=== PATIENT | male | born 1970 | race African-American/Black ===

== ENCOUNTER 2018-11-14 20:56 | Inpatient (IN) | payer OTHER ==
[~2018-11-14] VITALS: Ht 180.3 cm; Wt 214.5 kg
[~2018-11-14 20:56] MED LIST: CIPROFLOXACIN500 M1 PO; COZAAR 25 MG TA25 M1 PO; FLAGYL500 MG PO; HYDRALAZINE 2525 MG PO; IRBESARTAN-HCT1 EAC1 PO; PREDNISONE 10 M10 MG PO; PROAIR HFA8.5 GM INH; PROMETHAZINE-C120 ML PO; PROVENTIL HFA6.7 G1 INH; PYRIDIUM200 MG PO; ZPAK PO
[2018-11-14 20:59] VITALS: BP 205/109
[2018-11-14 21:35] LABS: HEMOGLOBIN 12.6 gm/dL (14.0-18.0)
[2018-11-14 21:37] LABS: HEMATOCRIT 39.6 % (42.0-52.0); MCH 25.6 pg (26.0-34.0); MCHC 31.9 g/dL (28.0-37.0); MCV 80.1 fL (80.0-100.0); RBC 4.94 mil/uL (4.50-6.00); RDW 16.3 % (10.5-14.5)
[2018-11-14 21:46] LABS: ANION GAP 12 mmol/L (7-16); BUN 18 mg/dL (7-18); CALCIUM 8.9 mg/dL (8.5-10.1); CHLORIDE 103 mmol/L (98-107); CO2 21 mmol/L (21-32); CREATININE 1.1 mg/dL (0.7-1.3); GLUCOSE 108 mg/dL (74-106); SODIUM 136 mmol/L (136-145)
[2018-11-14 21:47] LABS: POTASSIUM 5.4 mmol/L (3.5-5.1)
[2018-11-14 21:54] LABS: ALBUMIN 3.5 g/dL (3.4-5.0); LIPASE 131 U/L (73-393); SGOT 43 U/L (15-37); SGPT 28 U/L (30-65); TOTAL BILIRUBIN 0.8 mg/dL (<0.1-1.0); TROPONIN-I <0.06 ng/mL (<0.06)
[2018-11-14] MEDS ORDERED: CARVEDILOL6.25 M1 PO (23:24)
[2018-11-14] MEDS ORDERED: LASIX 20 MG TAB20 MG PO (23:25)
[2018-11-15 00:03] LABS: URINE BILIRUBIN NEGATIVE (Negative); URINE BLOOD NEGATIVE (Negative); URINE CLARITY CLEAR; URINE COLOR YELLOW; URINE GLUCOSE-RANDOM* NEGATIVE (Negative); URINE KETONES NEGATIVE (Negative); URINE LEUKOCYTES-REFLEX NEGATIVE (Negative); URINE NITRITE-REFLEX NEGATIVE (Negative); URINE PROTEIN (DIPSTICK) NEGATIVE (Negative); URINE UROBILINOGEN 0.2 E.U./dl (0.2-1.0)
[2018-11-15 01:19] VITALS: BP 193/96
[2018-11-15 01:55] VITALS: BP 193/96
[2018-11-15 02:16] VITALS: BP 180/92
--- NOTE | 2018-11-15 03:29 | NUR ---
ADMITTED FROM ER UNDER 'S CARE. ADMIT WITH ABD PAIN AND DIVERTICULITIS. PT WAS SEEN BY APOLLO BROUSSARD MANAGER CONVENTION FOR AT BEDSIDE. HOME MEDS RESUMED AND PUT ON NPO FOR NOW. NO S/S ACUTE DISTRESS NOTED OR REPORTED AT THIS TIME. WILL CONT TO MONITOR FOR ANY CHANGES IN CONDITION.
[2018-11-15 06:22] LABS: CALCIUM 8.7 mg/dL (8.5-10.1); CREATININE 1.3 mg/dL (0.7-1.3); MAGNESIUM 2.1 mg/dL (1.8-2.4)
[2018-11-15 06:23] LABS: POTASSIUM 3.8 mmol/L (3.5-5.1)
--- NOTE | 2018-11-15 07:37 | EKG ---
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[employer] Architect: SHANNEN : 1970 Requested By: Noelle Henriquez Order Number: [id number] MD: Jose Alberto Gaines Measurements Intervals [place] Rate: 97 P: 47 MO: 169 QRS: -30 QRSD: 111 T: 115 QT: 379 QTc: 482 Interpretive Statements Sinus rhythm Probable left atrial enlargement Left axis deviation Poor R wave progression Abnormal T, consider ischemia, lateral leads No previous ECG available for comparison Electronically Signed On 11-15-2018 7:37:18 CDT by Jose Alberto Gaines [email or web address] ��������������������������������������������� <ELECTRONICALLY SIGNED> ���������������������������������������� By: Jose Alberto Gaines MD, [facility] ��������������������������������������������� 11/15/18736 16 16 Jose Alberto Gaines MD, [facility] /EPI
[2018-11-15 07:50] VITALS: BP 160/93
--- NOTE | 2018-11-15 09:37 | NUR ---
salazar visited with pt at bedside, he preferrs going by mo, he was on phone call with his mother, offered to come back, pt stated " no i need to talk with you. intro to cm, transition of care, safe net packet. bedside nurse in room giving meds as ordered for pain " my stomach hurt, i was supposed to start new job today but no i am here. been off work for year laid off work. independent with needs as home , live with my mother. use [facility] for [facility]. just needs rx and will as family to help with medication. use cpap with naps and bedside. take btx at home. need to talk with someone about disability. my mom wants to talk with you"/mo. visited with his mom " he needs some help, he cant work and gets sick then looses his job. he needs disability and wt loss surgery"/reji. referral sent to [facility] emergency department, call pt at [phone] or visit in hospital before dc home. safety net packet provided. will cont following as needed for dc needs. dcp home with mother.
[2018-11-15 15:28] VITALS: BP 153/76
--- NOTE | 2018-11-15 17:02 | NUR ---
PATIENT VS STABLE THROUGHOUT SHIFT. PT C/O PAIN THROUGHOUT SHIFT, ADRESSED WITH PAIN MEDICATION. PT TO BRING BIPAP IN TONIGHT. PT REQUESTED HOME RESPIRATORY MEDICATON, PHYSICIAN ORDERED. PT TOLERATING CLEAR LIQUID DIET. FAMILY AT BEDSIDE.
[2018-11-15 19:20] VITALS: BP 135/72
[2018-11-16 03:18] VITALS: BP 146/91
--- NOTE | 2018-11-16 04:23 | NUR ---
ASSUMED CARE AROUND 1899. AXOX4. PAIN TX PER MD ORDER. IVF AND IV ATB FOR DIVERTICULITIS. NO S/S ACUTE DISTRESS NOTED OR REPORTED AT THIS TIME. WILL CONT TO MONITOR FOR ANY CHAGNES IN CONDITION.
[2018-11-16 05:35] LABS: HEMATOCRIT 36.7 % (42.0-52.0); HEMOGLOBIN 11.9 gm/dL (14.0-18.0); MCH 26.3 pg (26.0-34.0); MCHC 32.4 g/dL (28.0-37.0); RBC 4.54 mil/uL (4.50-6.00); RDW 16.3 % (10.5-14.5); WBC 10.4 thou/uL (4.0-11.0)
[2018-11-16 05:47] LABS: CALCIUM 8.5 mg/dL (8.5-10.1); CREATININE 1.3 mg/dL (0.7-1.3); POTASSIUM 3.6 mmol/L (3.5-5.1)
[2018-11-16 07:46] VITALS: BP 127/75
[2018-11-16 12:16] VITALS: BP 144/82
--- NOTE | 2018-11-16 14:24 | NUR ---
CARE TEAM INDICATED PT IS PROGRESSING TOWARD GOAL OF DISCHARGING HOME. CARE TEAM INDICATED POSSIBLE DC TOMORROW OR THURSDAY. CM TO FOLLOW INDICATED WITH DC PLANNING.
--- NOTE | 2018-11-16 15:31 | NUR ---
ASSUMED CARE 0700. ALERT X4 FROM HOME. VSS, PAIN MANAGED WITH MEDICATIONS. BM THIS MORNING AND REQUEST FOR DIET CHANGE. NOTIFIED DR BOSS WITH SOFT DIET ORDERED AND ENCOURAGE FLUIDS FOR URINATION PAIN. UP AB ARSH. CALLS APPROPRIATELY. CALL LIGHT IN REACH.
[2018-11-16 19:52] VITALS: BP 144/93
[2018-11-17 03:00] VITALS: BP 157/97
--- NOTE | 2018-11-17 05:08 | NUR ---
Assumed care at 1845. Pt resting in bed. VSS. Had BM today. Denies any abdominal pain or N/V. He has been using the bedside commode. IV discontinued. Expected discharge today. Call light within reach. No identified needs at the moment. Will continue to monitor.
[2018-11-17 06:05] LABS: ABSOLUTE NEUTROPHILS 5.1 thou/uL (1.4-8.2); BASOPHILS 0.2 % (0.0-2.0); EOSINOPHILS 2.1 % (0.0-3.0); HEMATOCRIT 34.2 % (42.0-52.0); HEMOGLOBIN 11.2 gm/dL (14.0-18.0); LYMPHOCYTES 18.9 % (24.0-44.0); MCH 26.2 pg (26.0-34.0); MCHC 32.7 g/dL (28.0-37.0); MCV 80.2 fL (80.0-100.0); MONOCYTES 10.3 % (1.0-8.0); PLATELET COUNT 209 thou/uL (150-400); POLYS 68.5 % (36.0-66.0); RBC 4.27 mil/uL (4.50-6.00); RDW 16.4 % (10.5-14.5); WBC 7.4 thou/uL (4.0-11.0)
[2018-11-17 06:25] LABS: CALCIUM 8.6 mg/dL (8.5-10.1); CREATININE 1.3 mg/dL (0.7-1.3); POTASSIUM 3.6 mmol/L (3.5-5.1)
[2018-11-17 08:06] VITALS: BP 147/96
[2018-11-17] MEDS ORDERED: CIPRO500 MG PO (09:07)
[2018-11-17] MEDS ORDERED: COZAAR 25 MG TA25 M1 PO (09:07)
[2018-11-17] MEDS ORDERED: HYDRALAZINE 2525 MG PO (09:07)
[2018-11-17] MEDS ORDERED: CARVEDILOL6.25 M1 PO (09:07)
[2018-11-17] MEDS ORDERED: FLAGYL500 M1 PO (09:07)
[2018-11-17 14:44] VITALS: BP 143/86
--- NOTE | 2018-11-17 15:26 | NUR ---
CARE TEAM INDICATED THAT PT IS MEDICALLY STABLE TO DC HOME THIS DAY. IT IS ANTICPATED THAT PT WILL LIKELY DISHARGE HOME WITH NO NEEDS. NO OTHER CM INTERVENTION INDICATED AT THIS TIME. CASE CLOSED.
[2018-11-17 16:18] VITALS: BP 143/86
[2018-11-17 16:31] VITALS: BP 143/86
--- NOTE | 2018-11-17 16:35 | NUR ---
TOWARDS POC PT A/O X4, VSS, AFEBRILE, PAIN MANAGED BY MEDS. PT IS FOR DC. IV DC'D. DC PACKET AND MED SCRIPTS PROVIDED. PT IS WAITING FOR A RIDE THAT WILL ARRIVE AT AROUND 1900.
== END 2018-11-17 21:01 | disposition home or self-care (01) | DRG 392 ==
LOC: ER 20:56 → EROBS 11-15 01:03 → 4W 11-15 01:03
PROVIDERS: Hospitalist; Nurse Practitioner Acute Care; Student in an Organized Health Care Education/Training Program; ADMIT Internal Medicine
DX: K57.32 Diverticulitis of large intestine without perforation or abscess without bleeding (principal); Z68.44 Body mass index [BMI] 60.0-69.9, adult; I11.0 Hypertensive heart disease with heart failure; I50.9 Heart failure, unspecified; J45.909 Unspecified asthma, uncomplicated; E66.01 Morbid (severe) obesity due to excess calories; G47.33 Obstructive sleep apnea (adult) (pediatric); Z88.8 Allergy status to other drugs, medicaments and biological substances; Z91.013 Allergy to seafood; Z87.891 Personal history of nicotine dependence; Z79.899 Other long term (current) drug therapy
CPT/HCPCS: 10040

== ENCOUNTER 2018-12-07 10:04 | Inpatient (IN) | payer OTHER ==
[~2018-12-07] VITALS: Ht 180.3 cm; Wt 218.6 kg
[~2018-12-07 10:04] MED LIST changes: +CARVEDILOL6.25 M1 PO; +CIPRO500 MG PO; +FLAGYL500 M1 PO; +LASIX 20 MG TAB20 MG PO
[2018-12-07 10:19] VITALS: BP 188/110
[2018-12-07] MEDS ORDERED: COZAAR 25 MG TA25 M1 PO (10:29)
[2018-12-07] MEDS ORDERED: LASIX 40 MG TAB40 M2 PO ×2 (10:29→20:41)
[2018-12-07 10:36] LABS: ABSOLUTE NEUTROPHILS 3.1 thou/uL (1.4-8.2); EOSINOPHILS 3.6 % (0.0-3.0); HEMATOCRIT 39.8 % (42.0-52.0); HEMOGLOBIN 13.1 gm/dL (14.0-18.0); LYMPHOCYTES 29.8 % (24.0-44.0); MCH 25.9 pg (26.0-34.0); MCHC 32.8 g/dL (28.0-37.0); MCV 78.9 fL (80.0-100.0); MONOCYTES 6.9 % (1.0-8.0); PLATELET COUNT 243 thou/uL (150-400); POLYS 58.7 % (36.0-66.0); RBC 5.04 mil/uL (4.50-6.00); RDW 16.7 % (10.5-14.5); WBC 5.3 thou/uL (4.0-11.0)
[2018-12-07 10:53] LABS: CALCIUM 9.4 mg/dL (8.5-10.1); CREATININE 1.1 mg/dL (0.7-1.3); POTASSIUM 3.8 mmol/L (3.5-5.1)
[2018-12-07 11:01] LABS: ALBUMIN 3.7 g/dL (3.4-5.0); TOTAL BILIRUBIN 0.9 mg/dL (<0.1-1.0); TOTAL PROTEIN 8.4 g/dL (6.4-8.2); TROPONIN-I 0.09 ng/mL (<0.06)
[2018-12-07 14:24] VITALS: BP 145/85
[2018-12-07 15:25] VITALS: BP 155/103; BP 188/103
--- NOTE | 2018-12-07 17:16 | EKG ---
[address] [address] ELECTROCARDIOGRAM REPORT Name: PIERO COLÓNLESLIE Uriarte Room #: 213- ADM IN M.R.#: [id number] ������������������ Admission: 12/07/18 ������������������ Attend Phys: Elia Brown MD Discharge: ������������������ Date of : 72 Report #: [id number] ����������������������������������������������������������������� [id number] THIS REPORT FOR: //name// [facility] ED Test Date: 2018-12-07 Test Time: 10:28:40 Pat Name: TAHIR COLÓN Department: Room: [facility] Gender: Pc Support Specialist: : 1970 Requested By: Edu Hope Order Number: [id number] MD: Cruz Montiel Measurements Intervals [place] Rate: 85 P: 44 VA: 157 QRS: -40 QRSD: 113 T: 154 QT: 422 QTc: 502 Interpretive Statements Sinus rhythm Ventricular premature complex Borderline IVCD with LAD Electronically Signed On 12-07-2018 17:16:20 CDT by Cruz Montiel [email or web address] ��������������������������������������������� <ELECTRONICALLY SIGNED> ���������������������������������������� By: Cruz Montiel MD ��������������������������������������������� 12/07/18 1716 102 Cruz Montiel MD /MJ
[2018-12-07] MEDS ORDERED: HYDRALAZINE 2525 MG PO (17:56)
--- NOTE | 2018-12-07 18:05 | NUR ---
PT ARRIVED TO UNIT FROM ER AT APPROX 1500 BY ER STAFF WITH ALL BELONGINGS. PT ALERT AND ORIENTED, VSS, NO C/O PAIN, UP AD ARSH. TELE PUT ON, ADMISSION COMPLETED, CONSENTS SIGNED. PT DENIES SOB, CHEST PAIN. WILL ACKNOWLEDGE AND IMPLEMENT ORDERDS. PT DENIES CONCERNS AT THIS TIME. WILL CONT TO MONITOR AND FOLLOW POC.
[2018-12-07 18:34] VITALS: BP 155/103
[2018-12-07 19:30] VITALS: BP 152/95
[2018-12-08] VITALS (8 sets, daily range): BP systolic 144–159; BP diastolic 76–102
[2018-12-08 04:35] LABS: ANION GAP 7 mmol/L (7-16); BUN 20 mg/dL (7-18); CALCIUM 8.8 mg/dL (8.5-10.1); CHLORIDE 105 mmol/L (98-107); CHOLESTEROL 170 mg/dL (<200); CO2 27 mmol/L (21-32); CREATININE 1.2 mg/dL (0.7-1.3); GLUCOSE 98 mg/dL (74-106); HDL CHOLESTEROL 38 mg/dL (>40); LDL CHOLESTEROL 117 mg/dL (<100); MAGNESIUM 2.2 mg/dL (1.8-2.4); POTASSIUM 3.5 mmol/L (3.5-5.1); SODIUM 139 mmol/L (136-145); TC:HDL 4.5 Ratio (Not establshd); TRIGLYCERIDE 75 mg/dL (<150); VLDL 15 mg/dL (<40)
--- NOTE | 2018-12-08 04:40 | NUR ---
ASSUMED PT CARE AT 1900. VSS, BP SLIGHTLY ELEVATED, METOPROLOL GIVEN. PT A&0X4. 2+ BILATERAL LOWER EXTREMITY EDEMA NOTED. PT STATED THAT HE DID NOT WANT THE FLUIDS RUNNING SINCE HE IS NOT CURRENTLY ON HIS LASIX AND HE ALSO HAD SOME FLUID RETENSION. NATALIIA GOMES NOTIFED AND FLUIDS D/C. PT COMPLAINED OF INDIGESTION AND REQUESTED A GI COCKTAIL. AFTER ADMINISTRATION, RELEIF WAS REPORTED. ALSO, PRUNE JUICE GIVEN TO PT LAST NIGHT HE REPORTS DAILY BM BUT HADN'T HAD ONE YET. PT HAD A BM TODAY, PT IS STABLE, SR ON THE MONITOR NO COMPLAINTS OF PAIN OR DISTRESS, WILL CONTINUE TO MONITOR PER POC
[2018-12-08 04:53] LABS: ABSOLUTE NEUTROPHILS 2.1 thou/uL (1.4-8.2); BASOPHILS 0.7 % (0.0-2.0); EOSINOPHILS 3.2 % (0.0-3.0); HEMATOCRIT 36.5 % (42.0-52.0); HEMOGLOBIN 11.8 gm/dL (14.0-18.0); LYMPHOCYTES 44.2 % (24.0-44.0); MCH 25.9 pg (26.0-34.0); MCHC 32.5 g/dL (28.0-37.0); MCV 79.7 fL (80.0-100.0); MONOCYTES 10.8 % (1.0-8.0); PLATELET COUNT 223 thou/uL (150-400); POLYS 41.1 % (36.0-66.0); RBC 4.57 mil/uL (4.50-6.00); RDW 17.2 % (10.5-14.5)
[2018-12-08 04:58] LABS: SERUM ASSESSMENT Clear
--- NOTE | 2018-12-08 08:19 | 2DMMODE ---
[facility] [address] [place] [address] 2 D/M-MODE ECHOCARDIOGRAM Name: TAHIR COLÓN Room #: 213-P ADM IN M.R.#: [id number] ������������� Admission: 12/07/18 ������������� Attend Phys: Elia Brown, Discharge: ��� ������������� ��� Date of : 72 Date of Service: 12/08/18 0818 �� Report #: [id number] �������� ��������������������������������������������[id number] THIS REPORT FOR: //name// APPROVED REPORT Study performed: 12/08/2018 07:00:53 EXAM: Comprehensive 2D, Doppler, and color-flow Echocardiogram Patient Location: Bedside Room #: 213 Status: routine BSA: 3.06 HR: 85 bpm BP: 145/76 mmHg Rhythm: NSR Other Information Study Quality: Adequate Technically limited study due to morbid obesity. Indications Atypical chest pain, elevated troponin. Hx: Cardiomyopathy, HTN, HLP, DM. Echo Enhancing Agent Indication: Endocardial border delineation Agent(s) / Amount(s) Used: Optison 4 cc 2D Dimensions RVDd: 47.99 mm IVSd: 12.32 (7-11mm) LVOT Diam: 24.07 (18-24mm) LVDd: 65.47 mm PWd: 12.80 (7-11mm) Ascending Ao: 40.47 (22-36mm) LVDs: 58.78 (25-40mm) Aortic Root: 34.31 mm Volumes Left Atrial Volume (Systole) Single Plane 4CH: 91.32 mL Single Plane 2CH: 103.40 mL LA ESV Index: 34.00 mL/m2 Aortic Valve AoV Peak Nadeem.: 1.74 m/s AO Peak Gr.: 12.05 mmHg LVOT Max P.76 mmHg [facility] Walk-in [place] [address] 2 D/M-MODE ECHOCARDIOGRAM Name: LISHELENMARCIASUMMER Uriarte Room #: 213-P [facility] IN ..#: [id number] ������������� Admission: 12/07/18 ������������� Attend Phys: Elia Brown, Discharge: ��� ������������� ��� Date of : 72 Date of Service: 12/08/18 0818 �� Report #: [id number] �������� ��������������������������������������������[id number] LVOT Max V: 0.97 m/s JUAN Vmax: 2.54 cm2 Mitral Valve E/A Ratio: 1.3 MV Decel. Time: 186.19 ms MV E Max Nadeem.: 1.34 m/s MV A Nadeem.: 1.02 m/s MV PHT: 54.00 ms IVRT: 93.43 ms Pulmonary Valve PV Peak Nadeem.: 0.96 m/s PV Peak Gr.: 3.72 mmHg Pulmonary Vein P Vein S: 0.50 m/s P Vein D: 0.54 m/s P Vein S/D Ratio: 0.93 Tricuspid Valve RAP Estimate: 10.00 mmHg Left Ventricle Left ventricle is moderately dilated. Mild concentric left ventricular hypertrophy. Left ventricular systolic function is moderate to severely decreased. LVEF is 30%. Moderate diastolic dysfunction is present (pseudonormal filling). Right Ventricle Right ventricle is not well visualized but appears mildly dilated. Atria Left atrium is mildly dilated. Right atrium is mildly dilated. Aortic Valve Aortic valve is trileaflet, possibly mild sclerosis. Difficult to image Mild aortic regurgitation. There is no aortic valvular stenosis. Mitral Valve The mitral valve is normal in structure. Mild to moderate mitral regurgitation. Tricuspid Valve [facility] [address] [place] [address] 2 D/M-MODE ECHOCARDIOGRAM Name: TAHIR COLÓN Room #: 213-P ADM IN M.R.#: [id number] ������������� Admission: 12/07/18 ������������� Attend Phys: Elia Brown, Discharge: ��� ������������� ��� Date of : 72 Date of Service: 12/08/18 0818 �� Report #: [id number] �������� ��������������������������������������������[id number] The tricuspid valve is normal in structure. Trace tricuspid regurgitation. Unable to assess PA pressure. Pulmonic Valve The pulmonary valve is normal in structure. Trace pulmonic regurgitation. Great Vessels The aortic root is normal in size. The ascending aorta is normal in size. IVC is dilated and collapses >50% with inspiration. Pericardium There is no pericardial effusion. <Conclusion> Technically limited study Left ventricular systolic function is moderate to severely decreased. LVEF is 30%. Moderate diastolic dysfunction Aortic valve is trileaflet, possible mild sclerosis. Difficult to image. Mild aortic regurgitation, no stenosis. The mitral valve is normal in structure. Mild to moderate mitral regurgitation. Unable to assess pulmonary artery pressure. There is no pericardial effusion. ��������������������������������������������� <ELECTRONICALLY SIGNED> ���������������������������������������� By: Jose Alberto Gaines MD, [facility] ��������������������������������������������� 12/08/18817 7 7 Jose Alberto Gaines MD, [facility] /INF
--- NOTE | 2018-12-08 12:22 | NUR ---
MET WITH PATIENT. HE WAS RECENTLY AT [facility] AND DC TO HOME NOVEMBER 17. HE COFIRMS HE LIVES IN [facility] HOME WITH MOM AND [facility] WITH ADLS. PATIENT REPORTS HE MET WITH [employer] LAST ADMISSION AND AT THAT TIME THEY FELT HE MAY QUALIFY FOR DISABILITY. HE HAS PAPERWORK AT HOME. HE REPORTS HE STARTED A NEW JOB ON THE DECEMBER 06. HE BELIEVES HE WILL EVENTUALLY REC INSURANCE BENEFITS. HE HAS [employer] PACKET. HE REQUESTS A PRESCRIPTION TO RETURN TO WORK. UPDATED PHYS.
[2018-12-08] MEDS ORDERED: CARVEDILOL12.5 MG PO (13:59)
[2018-12-08] MEDS ORDERED: PROTONIX40 M1 PO (14:02)
--- NOTE | 2018-12-08 17:25 | NUR ---
ASSESSMENT CHARTED, MEDICATIONS GIVEN ON OCT, COREG INCREASED TO 12.5 MG THIS AM. TOLERATED DIET, FLUIDS AND MEDICATIONS. NO C/O PAIN OR NAUSEA. DISCHARGE INSTRUCTIONS GIVEN TO PATIENT, STATED UNDERSTANDING. LEFT UNIT AMBULATORY ESCORTED BY NURSE.
== END 2018-12-08 17:35 | disposition home or self-care (01) | DRG 392 ==
LOC: ER 10:04 → EROBS 14:11 → 2N 15:08
PROVIDERS: Nurse Practitioner; Physician Assistant; ADMIT Internal Medicine
DX: K57.32 Diverticulitis of large intestine without perforation or abscess without bleeding (principal); I42.9 Cardiomyopathy, unspecified; Z68.44 Body mass index [BMI] 60.0-69.9, adult; R07.89 Other chest pain; J45.909 Unspecified asthma, uncomplicated; G47.33 Obstructive sleep apnea (adult) (pediatric); I50.9 Heart failure, unspecified; E66.01 Morbid (severe) obesity due to excess calories; K59.00 Constipation, unspecified; D64.9 Anemia, unspecified; K76.0 Fatty (change of) liver, not elsewhere classified; K57.30 Diverticulosis of large intestine without perforation or abscess without bleeding; I11.0 Hypertensive heart disease with heart failure; Z88.8 Allergy status to other drugs, medicaments and biological substances; Z91.013 Allergy to seafood; Z87.891 Personal history of nicotine dependence; Z82.49 Family history of ischemic heart disease and other diseases of the circulatory system; Z83.3 Family history of diabetes mellitus
CPT/HCPCS: 10081

== ENCOUNTER 2018-12-19 23:18 | Emergency (ER) | payer OTHER ==
[~2018-12-19] VITALS: Ht 180.3 cm; Wt 213.2 kg
[~2018-12-19 23:18] MED LIST changes: +CARVEDILOL12.5 MG PO; +LASIX 40 MG TAB40 M2 PO; +PROTONIX40 M1 PO
[2018-12-19 23:44] LABS: ABSOLUTE NEUTROPHILS 3.5 thou/uL (1.4-8.2); BASOPHILS 0.6 % (0.0-2.0); EOSINOPHILS 1.9 % (0.0-3.0); HEMATOCRIT 41.9 % (42.0-52.0); HEMOGLOBIN 13.5 gm/dL (14.0-18.0); LYMPHOCYTES 34.8 % (24.0-44.0); MCH 25.4 pg (26.0-34.0); MCHC 32.2 g/dL (28.0-37.0); MCV 78.9 fL (80.0-100.0); PLATELET COUNT 226 thou/uL (150-400); POLYS 55.7 % (36.0-66.0); RDW 17.9 % (10.5-14.5); WBC 6.3 thou/uL (4.0-11.0)
[2018-12-19 23:51] LABS: CALCIUM 8.9 mg/dL (8.5-10.1); CREATININE 1.2 mg/dL (0.7-1.3); POTASSIUM 4.1 mmol/L (3.5-5.1)
[2018-12-20 00:01] LABS: ALBUMIN 3.7 g/dL (3.4-5.0); TOTAL BILIRUBIN 0.4 mg/dL (<0.1-1.0); TOTAL PROTEIN 7.7 g/dL (6.4-8.2); TROPONIN-I 0.1 ng/mL (<0.06)
[2018-12-20] MEDS ORDERED: FLAGYL500 M1 PO (00:18)
[2018-12-20] MEDS ORDERED: NORCO 5-325 TA1 EACH PO (00:18)
[2018-12-20 01:16] VITALS: BP 168/103
== END 2018-12-20 01:20 | disposition home or self-care (01) ==
LOC: ER 23:18
PROVIDERS: Emergency Medicine
DX: K57.92 Diverticulitis of intestine, part unspecified, without perforation or abscess without bleeding (principal); E66.01 Morbid (severe) obesity due to excess calories; F41.9 Anxiety disorder, unspecified; R79.89 Other specified abnormal findings of blood chemistry; J45.909 Unspecified asthma, uncomplicated; I11.0 Hypertensive heart disease with heart failure; I50.9 Heart failure, unspecified; Z68.44 Body mass index [BMI] 60.0-69.9, adult; Z91.14 Patient's other noncompliance with medication regimen; Z87.891 Personal history of nicotine dependence; Z88.8 Allergy status to other drugs, medicaments and biological substances; Z91.013 Allergy to seafood

== ENCOUNTER 2019-01-21 04:32 | Emergency (ER) | payer OTHER ==
[~2019-01-21] VITALS: Ht 149.9 cm; Wt 206.4 kg
[~2019-01-21 04:32] MED LIST changes: +NORCO 5-325 TA1 EACH PO
[2019-01-21 04:59] LABS: URINE BILIRUBIN NEGATIVE (Negative); URINE BLOOD NEGATIVE (Negative); URINE CLARITY CLEAR; URINE COLOR YELLOW; URINE GLUCOSE-RANDOM* NEGATIVE (Negative); URINE KETONES NEGATIVE (Negative); URINE LEUKOCYTES-REFLEX NEGATIVE (Negative); URINE NITRITE-REFLEX NEGATIVE (Negative); URINE PROTEIN (DIPSTICK) 1+ (Negative); URINE SPECIFIC GRAVITY >= 1.030 (1.005-1.035); URINE UROBILINOGEN 0.2 E.U./dl (0.2-1.0)
[2019-01-21 05:11] LABS: SQUAMOUS 0-3 Few /LPF (0-3)
[2019-01-21 05:12] LABS: BACTERIA-REFLEX 1-9 Few /HPF (None Seen); CASTS None Seen /LPF (None Seen); CRYSTALS None Seen /LPF (None Seen); MUCUS >6 Heavy strn/LPF (None Seen); URINE RBC 0-2 Rare /HPF (0-2); URINE WBC-REFLEX 0-5 Rare /HPF (0-5)
[2019-01-21 05:22] LABS: BASOPHILS 0.6 % (0.0-2.0); EOSINOPHILS 2.4 % (0.0-3.0); HEMATOCRIT 40.3 % (42.0-52.0); LYMPHOCYTES 29.8 % (24.0-44.0); MCH 25.7 pg (26.0-34.0); MCHC 32.2 g/dL (28.0-37.0); MONOCYTES 11.4 % (1.0-8.0); PLATELET COUNT 226 thou/uL (150-400); POLYS 55.8 % (36.0-66.0); RBC 5.04 mil/uL (4.50-6.00); RDW 18.8 % (10.5-14.5); WBC 5.4 thou/uL (4.0-11.0)
[2019-01-21 05:30] LABS: CREATININE 1.1 mg/dL (0.7-1.3); POTASSIUM 3.6 mmol/L (3.5-5.1)
[2019-01-21] MEDS ORDERED: PYRIDIUM200 MG PO (05:42)
[2019-01-21 06:26] VITALS: BP 156/107
== END 2019-01-21 06:27 | disposition home or self-care (01) ==
LOC: ER 04:32
PROVIDERS: Emergency Medicine
DX: R10.30 Lower abdominal pain, unspecified (principal); R30.0 Dysuria; I11.0 Hypertensive heart disease with heart failure; I50.9 Heart failure, unspecified; J45.909 Unspecified asthma, uncomplicated; E66.01 Morbid (severe) obesity due to excess calories; Z68.45 Body mass index [BMI] 70 or greater, adult; Z88.8 Allergy status to other drugs, medicaments and biological substances; Z91.013 Allergy to seafood; Z87.891 Personal history of nicotine dependence